=== PATIENT | male | born 1950 | race Caucasian/White ===

== ENCOUNTER 2018-08-05 19:35 | Emergency (ER) | payer MEDICARE, BC, OTHER ==
--- NOTE | 2018-08-05 21:30 | ED Physician Documentation ---
PD HPI ABD PAIN - Stated complaint Stated Complaint: CHILLS/ABD PX - Chief complaint Chief Complaint: Abd Pain - History obtained from History obtained from: Patient - History of Present Illness Timing - onset: Today Timing - duration: Days (1) Timing - details: Gradual onset, Still present Quality: Cramping, Aching, Pain Location: Suprapubic, LLQ Radiation: No: Chest, Lower back, Left flank Improved by: No: Eating Worsened by: No: Eating Associated symptoms: Diarrhea (small amounts loose stool without blood nor melena.). No: Fever, Nausea, Vomiting, Constipation Similar symptoms before: Diagnosis (diverticulitis with few prior similar symptoms, not needing hospitalization.) Recently seen: Not recently seen Review of Systems Constitutional: denies: Fever, Chills Nose: denies: Rhinorrhea / runny nose, Congestion Throat: denies: Sore throat Cardiac: denies: Chest pain / pressure, Palpitations Respiratory: denies: Dyspnea, Cough GI: reports: Abdominal Pain. denies: Nausea, Vomiting, Constipation, Diarrhea, Bloody / black stool : denies: Dysuria, Frequency Skin: denies: Rash, Lesions Neurologic: denies: Generalized weakness, Near syncope PD PAST MEDICAL HISTORY - Past Medical History Cardiovascular: High cholesterol Endocrine/Autoimmune: None GI: Diverticulitis Psych: None Musculoskeletal: Osteoarthritis, Fatigue - Past Surgical History Past Surgical History: Yes HEENT: Tonsil/Adenoidectomy - Present Medications Home Medications: Ambulatory Orders Medication Instructions Recorded Confirmed Lisinopril 04/11/16 Metoprolol Succinate 04/11/16 Atorvastatin [Lipitor] 20 mg PO DAILY 08/05/18 08/05/18 Cephalexin [Keflex] 500 mg PO TID #21 capsule 08/05/18 Metronidazole [Flagyl] 500 mg PO BID #14 tablet 08/05/18 Naproxen 500 mg PO BID #20 tablet 08/05/18 - Allergies Allergies/Adverse Reactions: Allergies Allergy/AdvReac Type Severity Reaction Status Date / Time No Known Drug Allergies Allergy Verified 08/05/18 19:42 - Social History Does the pt smoke?: No Smoking Status: Never smoker Does the pt drink ETOH?: Yes - Immunizations Immunizations are current?: Yes PD ED PE NORMAL - Vitals Vital signs reviewed: Yes - General General: Alert and oriented X 3, No acute distress, Well developed/nourished - HEENT HEENT: Pharynx benign - Neck Neck: Supple, no meningeal sign, No adenopathy - Cardiac Cardiac: RRR, No murmur - Respiratory Respiratory: Clear bilaterally - Abdomen Abdomen: Normal bowel sounds, Soft, Non distended, No organomegaly, Other (He is tender in the left lower quadrant minimal guarding and no percussion or rebound tenderness. There is no referred tenderness. There is no general peritoneal signs.) - Back Back: No CVA TTP - Derm Derm: Normal color, Warm and dry - Extremities Extremities: No deformity, No tenderness to palpate, Normal ROM s pain - Neuro Neuro: Alert and oriented X 3, No motor deficit, Normal speech Results - Vitals Vitals: Vital Signs - 24 hr 08/05/18 08/05/18 19:36 22:14 Temperature 37.2 C 37.1 C Heart Rate 50 L 53 L Respiratory 16 16 Rate Blood Pressure 149/60 H 138/71 H O2 Saturation 100 98 Oxygen O2 Source Room air PD MEDICAL DECISION MAKING - ED course Complexity details: considered differential (He is having pain today that feels similar to several episodes of diverticulitis he has had. He has not been hospitalized previously and has not had complicated diverticulitis. Shared decision was to forego any testing and just treated empirically as diverticulitis.), d/w patient Departure - Departure Disposition: 01 Home, Self Care Clinical Impression: LLQ abdominal pain, Acute diverticulitis Condition: Stable Record reviewed to determine appropriate education?: Yes Instructions: ED Diverticulitis Follow-Up: Alessio Mohr MD [Primary Care Provider] - Prescriptions: Cephalexin [Keflex] 500 mg PO TID #21 capsule Metronidazole [Flagyl] 500 mg PO BID #14 tablet Naproxen 500 mg PO BID #20 tablet Comments: This sounds like diverticulitis like you have had before. Drink lots of fluids. Stool softener if you becomes firm or constipated. Naproxen anti-inflammatory twice daily for a week. Cephalexin and metronidazole antibiotics as directed for a week. Add Tylenol or hydrocodone if needed for pains. Recheck if not improved over the next few days. Discharge Date/Time: 08/05/18 22:14
[2018-08-05] MEDS ORDERED: HYDROcod/ACET 5/325 Prepack 4 PO STA (21:47)
[2018-08-05] MEDS ORDERED: cephALEXin 250 MG CAPSULE PO STA (21:47)
[2018-08-05] MEDS ORDERED: NAPROXEN 250 MG TABLET PO STA (21:47)
[2018-08-05] MEDS ORDERED: metroNIDAZOLE 250 MG TABLET PO STA (21:47)
[2018-08-05 22:14] VITALS: BP 138/71
== END 2018-08-05 22:14 | disposition home or self-care (01) ==
LOC: ED 19:35
DX: K57.32 Diverticulitis of large intestine without perforation or abscess without bleeding (principal)
CPT/HCPCS: 99283; 99284; A9270

== ENCOUNTER 2021-01-31 11:50 | Outpatient (CLI) | payer MEDICARE, BC, OTHER ==
--- NOTE | 2021-02-01 09:08 | XRAY Report ---
PROCEDURE: Chest 2 View X-Ray INDICATIONS: COUGH TECHNIQUE: 2 view(s) of the chest. COMPARISON: None. FINDINGS: Surgical changes and devices: None. Lungs and pleura: The right lung has 2 round ill-defined opacities in the midlung. There is also air space opacity in the right lower lobe medially. No pleural effusions or pneumothorax. Lungs are chari r. Mediastinum: Mediastinal contours are normal. Heart size is normal. Bones and chest wall: No suspicious bony abnormalities. Soft tissues appear unremarkable. IMPRESSION: Ill-defined opacities in the right midlung and right lower lobe, likely early pneumonia. Recommend follow-up x-ray in 2 weeks to ensure resolution. Reviewed by: Stanislaw Stark on 02/01/2021 9:07 AM PDT Approved by: Stanislaw Stark on 02/01/2021 9:07 AM PDT Station ID: [id number]
== END 2021-01-31 11:51 ==
LOC: DI.N 11:50
PROVIDERS: ATTEND Physician Assistant Medical
DX: R05 Cough (principal); R91.8 Other nonspecific abnormal finding of lung field

== ENCOUNTER 2022-01-16 18:09 | Emergency (ER) | payer MEDICARE, OTHER ==
[2022-01-16 18:17] VITALS: BP 145/63
--- OUTSIDE RECORDS SUMMARY | 2022-01-16 18:20 | EXTERNAL MEDICAL SUMMARY RPT | Continuity of Care Document ---
:1950 Author Organization [facility] Address [address] [place] [id number] Phone Allergies and Intolerances date description facility type (no date) No Known Drug Allergies [facility] (unkn own) Encounters No information. Functional Status No information. Immunizations No information. Medications No information. Problems No information. Procedures No information. Results/Labs test date author facility value unit interpret ation Result panel 1 (unknown) (no (unknown) (unknown) (no value) (units (unk nown) date) unknown) (unknown) (no (unknown) (unknown) (no value) (units (unk nown) date) unknown) (unknown) (no (unknown) (unknown) [place], [place] (units ( unknown) date) [id number] unknown) (unknown) (no (unknown) (unknown) Draft (units (unkno wn) date) unknown) (unknown) (no (unknown) (unknown) [facility] (units (unknown) date) unknown) (unknown) (no (unknown) (unknown) Nurse Office (units (u nknown) date) Visit unknown) (unknown) (no (unknown) (unknown) (no value) (units (unk nown) date) unknown) (unknown) (no (unknown) (unknown) COVID-19 (units (u nknown) date) unknown) (unknown) (no (unknown) (unknown) [id number] (units (unkno wn) date) unknown) (unknown) (no (unknown) (unknown) 12/20/21 (units (unkno wn) date) unknown) (unknown) (no (unknown) (unknown) Age/Sex: 71 / M (units (unknown) date) Date of unknown) Service: (unknown) (no (unknown) (unknown) Allergies (units (unkn own) date) unknown) (unknown) (no (unknown) (unknown) Attending Dr: (units ( unknown) date) Michael Worthington MD unknown) (unknown) (no (unknown) (unknown) : 1950 (units (unknown) date) Acct:[id number] unknown) (unknown) (no (unknown) (unknown) Dept at (units (unkno wn) date) . unknown) (unknown) (no (unknown) (unknown) Documented By: (units (unknown) date) Michael Worthington MD unknown) 12/20/21 1151 (unknown) (no (unknown) (unknown) Evaluation/Scree (units (unknown) date) roe for possible unknown) COVID-19 completed?: Yes- COVID-19 CPT (unknown) (no (unknown) (unknown) Health (units (unkno wn) date) Management unknown) (unknown) (no (unknown) (unknown) Health (units (unkno wn) date) Management unknown) reviewed with patient: No (unknown) (no (unknown) (unknown) Intake (units (unkno wn) date) unknown) (unknown) (no (unknown) (unknown) Intake Note: (units (u nknown) date) unknown) (unknown) (no (unknown) (unknown) Intake performed (units (unknown) date) by: Raquel Hernandez unknown) (unknown) (no (unknown) (unknown) Intake- Clincial (units (unknown) date) Staff unknown) (unknown) (no (unknown) (unknown) Loc: [facility] (units (unkno wn) date) unknown) (unknown) (no (unknown) (unknown) No Known Drug (units ( unknown) date) Allergies Allergy unknown) (Verified 09/15/21 15:18) (unknown) (no (unknown) (unknown) Note (units (unkno wn) date) unknown) (unknown) (no (unknown) (unknown) Patient: (units (unkno wn) date) Andrei Mcneill unknown) MR#: [id number] (unknown) (no (unknown) (unknown) Pt came in for a (units (unknown) date) pre procedure unknown) covid test. Denied any covid symptoms. Explained (unknown) (no (unknown) (unknown) Reason For Visit (units (unknown) date) unknown) (unknown) (no (unknown) (unknown) Signed By: (units (unk nown) date) unknown) (unknown) (no (unknown) (unknown) Smoking Status: (units (unknown) date) Former smoker unknown) (unknown) (no (unknown) (unknown) This note may (units ( unknown) date) have been all or unknown) partially generated using voice recognition (unknown) (no (unknown) (unknown) Tobacco Status (units (unknown) date) unknown) (unknown) (no (unknown) (unknown) Visit Reasons: (units (unknown) date) georgina unknown) (unknown) (no (unknown) (unknown) covid test to (units ( unknown) date) pt. [facility] unknown) well. (unknown) (no (unknown) (unknown) have occurred. (units (unknown) date) If there are any unknown) questions, please contact the Medical Records (unknown) (no (unknown) (unknown) may occur. (units (unk nown) date) Occasional unknown) wrong-word or 'sound-alike' substitutions may have (unknown) (no (unknown) (unknown) occurred due to (units (unknown) date) the inherent unknown) limitations of voice recognition software. Please (unknown) (no (unknown) (unknown) read the note (units ( unknown) date) carefully and unknown) recognize, using context, where these substitutions (unknown) (no (unknown) (unknown) software. (units (unkn own) date) Although every unknown) effort is made to edit content, tower air traffic control specialist errors Result panel 2 (unknown) (no (unknown) (unknown) (no value) (units (unk nown) date) unknown) (unknown) (no (unknown) (unknown) (no value) (units (unk nown) date) unknown) (unknown) (no (unknown) (unknown) 12/20/21 1213 (units ( unknown) date) unknown) (unknown) (no (unknown) (unknown) CLAIRE Vasquez (units ( unknown) date) [id number] unknown) (unknown) (no (unknown) (unknown) [facility] (units (unknown) date) unknown) (unknown) (no (unknown) (unknown) Nurse Office (units (u nknown) date) Visit unknown) (unknown) (no (unknown) (unknown) Signed (units (unkno wn) date) unknown) (unknown) (no (unknown) (unknown) (no value) (units (unk nown) date) unknown) (unknown) (no (unknown) (unknown) COVID-19 (units (u nknown) date) unknown) (unknown) (no (unknown) (unknown) [id number] (units (unkno wn) date) unknown) (unknown) (no (unknown) (unknown) 12/20/21 (units (unkno wn) date) unknown) (unknown) (no (unknown) (unknown) Age/Sex: 71 / M (units (unknown) date) Date of unknown) Service: (unknown) (no (unknown) (unknown) Allergies (units (unkn own) date) unknown) (unknown) (no (unknown) (unknown) Attending Dr: (units ( unknown) date) Michael Worthington MD unknown) (unknown) (no (unknown) (unknown) : 1950 (units (unknown) date) Acct:[id number] unknown) (unknown) (no (unknown) (unknown) Dept at (units (unkno wn) date) . unknown) (unknown) (no (unknown) (unknown) Documented By: (units (unknown) date) Michael Worthington MD unknown) 12/20/21 1151 (unknown) (no (unknown) (unknown) Evaluation/Scree (units (unknown) date) roe for possible unknown) COVID-19 completed?: Yes- COVID-19 CPT (unknown) (no (unknown) (unknown) Health (units (unkno wn) date) Management unknown) (unknown) (no (unknown) (unknown) Health (units (unkno wn) date) Management unknown) reviewed with patient: No (unknown) (no (unknown) (unknown) Intake (units (unkno wn) date) unknown) (unknown) (no (unknown) (unknown) Intake Note: (units (u nknown) date) unknown) (unknown) (no (unknown) (unknown) Intake performed (units (unknown) date) by: Raquel Hernandez unknown) (unknown) (no (unknown) (unknown) Intake- Clincial (units (unknown) date) Staff unknown) (unknown) (no (unknown) (unknown) Loc: [facility] (units (unkno wn) date) unknown) (unknown) (no (unknown) (unknown) No Known Drug (units ( unknown) date) Allergies Allergy unknown) (Verified 09/15/21 15:18) (unknown) (no (unknown) (unknown) Note (units (unkno wn) date) unknown) (unknown) (no (unknown) (unknown) Patient: (units (unkno wn) date) Andrei Mcneill unknown) MR#: [id number] (unknown) (no (unknown) (unknown) Pt came in for a (units (unknown) date) pre procedure unknown) covid test. Denied any covid symptoms. Explained (unknown) (no (unknown) (unknown) Reason For Visit (units (unknown) date) unknown) (unknown) (no (unknown) (unknown) Signed By: (units (unk nown) date) <Electronically unknown) signed by Michael Worthington MD> (unknown) (no (unknown) (unknown) Smoking Status: (units (unknown) date) Former smoker unknown) (unknown) (no (unknown) (unknown) This note may (units ( unknown) date) have been all or unknown) partially generated using voice recognition (unknown) (no (unknown) (unknown) Tobacco Status (units (unknown) date) unknown) (unknown) (no (unknown) (unknown) Visit Reasons: (units (unknown) date) georgina unknown) (unknown) (no (unknown) (unknown) covid test to (units ( unknown) date) pt. [facility] unknown) well. (unknown) (no (unknown) (unknown) have occurred. (units (unknown) date) If there are any unknown) questions, please contact the Medical Records (unknown) (no (unknown) (unknown) may occur. (units (unk nown) date) Occasional unknown) wrong-word or 'sound-alike' substitutions may have (unknown) (no (unknown) (unknown) occurred due to (units (unknown) date) the inherent unknown) limitations of voice recognition software. Please (unknown) (no (unknown) (unknown) read the note (units ( unknown) date) carefully and unknown) recognize, using context, where these substitutions (unknown) (no (unknown) (unknown) software. (units (unkn own) date) Although every unknown) effort is made to edit content, tower air traffic control specialist errors Result panel 3 (unknown) (no date) (unknown) (unknown) Negative (units (unkn own) unknown) Result panel 4 (unknown) (no date) (unknown) (unknown) (no value) (units 226 37-3 unknown) (unknown) (no date) (unknown) (unknown) (no value) (units 495 60-6 unknown) (unknown) (no date) (unknown) (unknown) (no value) (units 226 36-5 unknown) (unknown) (no date) (unknown) (unknown) (no value) (units 191 39-5 unknown) (unknown) (no date) (unknown) (unknown) (no value) (units 226 34-0 unknown) (unknown) (no date) (unknown) (unknown) (no value) (units 226 33-2 unknown) (unknown) (no date) (unknown) (unknown) (no value) (units 527 97-8 unknown) Result panel 5 (unknown) (no (unknown) (unknown) (no value) (units (unk nown) date) unknown) (unknown) (no (unknown) (unknown) Status: Acute (units ( unknown) date) unknown) (unknown) (no (unknown) (unknown) (no value) (units (unk nown) date) unknown) (unknown) (no (unknown) (unknown) Date of Service: (units (unknown) date) 12/21/21 unknown) (unknown) (no (unknown) (unknown) (no value) (units (unk nown) date) unknown) (unknown) (no (unknown) (unknown) - (units (unkno wn) date) unknown) (unknown) (no (unknown) (unknown) 12/21/21 0835 (units ( unknown) date) unknown) (unknown) (no (unknown) (unknown) Allergies (units (unkn own) date) unknown) (unknown) (no (unknown) (unknown) Heart disease (units ( unknown) date) unknown) (unknown) (no (unknown) (unknown) History + (units (unkn own) date) Physical Report unknown) (unknown) (no (unknown) (unknown) Home Medications (units (unknown) date) unknown) (unknown) (no (unknown) (unknown) [facility] (units (unknown) date) [address] unknown) [place] [address] (unknown) (no (unknown) (unknown) (no value) (units (unk nown) date) unknown) (unknown) (no (unknown) (unknown) #20 tabs (units (unkno wn) date) unknown) (unknown) (no (unknown) (unknown) 12/21/21 (units (unkno wn) date) unknown) (unknown) (no (unknown) (unknown) Medication (units (unk nown) date) Instructions unknown) Recorded Confirmed Type (unknown) (no (unknown) (unknown) (1) Diarrhea: (units ( unknown) date) unknown) (unknown) (no (unknown) (unknown) (Toprol XL) (units (un known) date) unknown) (unknown) (no (unknown) (unknown) (past 8 hours): (units (unknown) date) unknown) (unknown) (no (unknown) (unknown) [id number] (units (unkno wn) date) unknown) (unknown) (no (unknown) (unknown) 08:19 (units (unkno wn) date) unknown) (unknown) (no (unknown) (unknown) 71-year-old man (units (unknown) date) here for a unknown) colonoscopy secondary to chronic diarrhea. (unknown) (no (unknown) (unknown) 71-year-old man (units (unknown) date) with chronic unknown) diarrhea here for diagnostic colonoscopy. (unknown) (no (unknown) (unknown) Abdomen soft (units (u nknown) date) nontender unknown) (unknown) (no (unknown) (unknown) Age/Sex: 71 / M (units (unknown) date) unknown) (unknown) (no (unknown) (unknown) Allergy/AdvReac (units (unknown) date) Type Severity unknown) Reaction Status Date / Time (unknown) (no (unknown) (unknown) Aphthous ulcer (units (unknown) date) of tongue unknown) (unknown) (no (unknown) (unknown) Assessment + (units (u nknown) date) Plan unknown) (unknown) (no (unknown) (unknown) Assessment and (units (unknown) date) plan unknown) (unknown) (no (unknown) (unknown) Blood Pressure (units (unknown) date) 143/77 H unknown) (unknown) (no (unknown) (unknown) Cardiac (units (unkno wn) date) arrhythmia unknown) (unknown) (no (unknown) (unknown) Chest nonlabored (units (unknown) date) respiration unknown) (unknown) (no (unknown) (unknown) Chief complaint: (units (unknown) date) SDC unknown) (unknown) (no (unknown) (unknown) Cognitive and (units ( unknown) date) behavioral unknown) changes (unknown) (no (unknown) (unknown) Critical Care (units ( unknown) date) time: unknown) (unknown) (no (unknown) (unknown) : 1950 (units (unknown) date) Acct:[id number] unknown) (unknown) (no (unknown) (unknown) Date Patient (units (u nknown) date) Seen: 12/21/21 unknown) (unknown) (no (unknown) (unknown) Exam (units (unkno wn) date) unknown) (unknown) (no (unknown) (unknown) Exam Narrative: (units (unknown) date) unknown) (unknown) (no (unknown) (unknown) Family + Social (units (unknown) date) History unknown) (unknown) (no (unknown) (unknown) Family History (units (unknown) date) (Reviewed unknown) 09/15/21 @ 15:23 by Lolita Najera MA) (unknown) (no (unknown) (unknown) Father Stroke (units (unknown) date) unknown) (unknown) (no (unknown) (unknown) General adult (units ( unknown) date) man alert unknown) oriented no acute distress (unknown) (no (unknown) (unknown) Grandmother (units (un known) date) Dementia unknown) (unknown) (no (unknown) (unknown) H/O cardiac (units (un known) date) radiofrequency unknown) ablation (unknown) (no (unknown) (unknown) Hearing loss (units (u nknown) date) unknown) (unknown) (no (unknown) (unknown) History of (units (unk nown) date) Present Illness unknown) (unknown) (no (unknown) (unknown) Home Medications (units (unknown) date) and Allergies unknown) (unknown) (no (unknown) (unknown) Hyperlipidemia (units (unknown) date) unknown) (unknown) (no (unknown) (unknown) I spent a total (units (unknown) date) of [] minutes of unknown) critical care time on this patient's care (unknown) (no (unknown) (unknown) Medical History (units (unknown) date) (Updated 12/21/21 unknown) @ 08:34 by Michael Worthington MD) (unknown) (no (unknown) (unknown) Meds (units (unkno wn) date) unknown) (unknown) (no (unknown) (unknown) Mother (units (unkno wn) date) unknown) Alzheimer's disease (unknown) (no (unknown) (unknown) Narrative (units (unkn own) date) unknown) (unknown) (no (unknown) (unknown) Narrative: (units (unk nown) date) unknown) (unknown) (no (unknown) (unknown) No Known Drug (units ( unknown) date) Allergies Allergy unknown) Verified 09/15/21 15:18 (unknown) (no (unknown) (unknown) Oxygen Delivery (units (unknown) date) Method Room unknown) Air (unknown) (no (unknown) (unknown) Oxygen Delivery (units (unknown) date) Method Room Air unknown) (unknown) (no (unknown) (unknown) Patient History (units (unknown) date) unknown) (unknown) (no (unknown) (unknown) Patient: (units (unkno wn) date) Andrei Mcneill unknown) MR#: [id number] (unknown) (no (unknown) (unknown) Plan (units (unkno wn) date) unknown) (unknown) (no (unknown) (unknown) Provider: (units (unkn own) date) Michael Worthington MD unknown) (unknown) (no (unknown) (unknown) Pulse Oximetry (units (unknown) date) 100 unknown) (unknown) (no (unknown) (unknown) Pulse Rate 56 L (units (unknown) date) unknown) (unknown) (no (unknown) (unknown) Respiratory Rate (units (unknown) date) 16 unknown) (unknown) (no (unknown) (unknown) Shoulder pain (units ( unknown) date) (-2011) unknown) (unknown) (no (unknown) (unknown) Signed (units (unkno wn) date) By:<Electronicall unknown) y signed by Michael Worthington MD> (unknown) (no (unknown) (unknown) Significant (units (un known) date) cardiac unknown) comorbidities will proceed with anesthesia for sedation (unknown) (no (unknown) (unknown) Significant (units (un known) date) cardiac history unknown) the procedures to be performed under anesthesia (unknown) (no (unknown) (unknown) Smoking Status (units (unknown) date) Former smoker unknown) (unknown) (no (unknown) (unknown) Social History: (units (unknown) date) unknown) (unknown) (no (unknown) (unknown) Substance Use (units ( unknown) date) Type does not unknown) use (unknown) (no (unknown) (unknown) Surgical History (units (unknown) date) (Updated 12/21/21 unknown) @ 08:32 by Chloé Delacruz RN) (unknown) (no (unknown) (unknown) Temperature 96.3 (units (unknown) date) F L unknown) (unknown) (no (unknown) (unknown) Time Patient (units (u nknown) date) Seen: 08:32 unknown) (unknown) (no (unknown) (unknown) Time Spent With (units (unknown) date) Patient unknown) (unknown) (no (unknown) (unknown) Tinnitus (units (unkno wn) date) unknown) (unknown) (no (unknown) (unknown) Tobacco + (units (unkn own) date) Substance use: unknown) (unknown) (no (unknown) (unknown) Vital Signs (units (un known) date) unknown) (unknown) (no (unknown) (unknown) alcohol intake (units (unknown) date) frequency unknown) holiday/special occasion (unknown) (no (unknown) (unknown) atorvastatin 20 (units (unknown) date) mg tablet 20 mg unknown) PO DAILY #90 tabs 05/23/21 12/21/21 Rx (unknown) (no (unknown) (unknown) bleeding, missed (units (unknown) date) diagnosis, unknown) anesthetic complication, intestinal perforation were (unknown) (no (unknown) (unknown) bupropion HCl (units ( unknown) date) 150 mg tablet,12 unknown) hr 150 mg PO DAILY #90 tabs 07/25/21 12/21/21 Rx (unknown) (no (unknown) (unknown) discussed. (units (unk nown) date) Questions have unknown) been answered he is in agreement with this plan. (unknown) (no (unknown) (unknown) household (units (unkn own) date) members spouse unknown) (unknown) (no (unknown) (unknown) measures. (units (unkn own) date) Overview of unknown) procedure was discussed with patient. Risks including (unknown) (no (unknown) (unknown) metoprolol (units (unk nown) date) succinate 25 mg unknown) 25 mg PO BID #180 tabs 02/14/19 12/21/21 Rx (unknown) (no (unknown) (unknown) sedation today. (units (unknown) date) No abdominal pain unknown) nausea vomiting. (unknown) (no (unknown) (unknown) sildenafil 50 mg (units (unknown) date) tablet 50 mg PO unknown) DAILY PRN sexual activity 09/23/21 12/21/21 Rx (unknown) (no (unknown) (unknown) sustained-releas (units (unknown) date) e unknown) (unknown) (no (unknown) (unknown) tablet,extended (units (unknown) date) release 24 hr unknown) (unknown) (no (unknown) (unknown) today; this time (units (unknown) date) is exclusive of unknown) procedural time. Result panel 6 (unknown) (no (unknown) (unknown) Superficial (units (un known) date) portions of unknown) colorectal mucosa x2 with patchy, mild (unknown) (no (unknown) (unknown) There is no (units (un known) date) evidence of unknown) microscopic colitis, active inflammation, (unknown) (no (unknown) (unknown) [address] [place] [address] (units (unknown) date) [address], unknown) [place], [place] [id number] (unknown) (no (unknown) (unknown) [facility] (units (unknown) date) MD Cytology unknown) (unknown) (no (unknown) (unknown) MD Saez (units (unkn own) date) Usman GAVIN Phone: unknown) [phone] (unknown) (no (unknown) (unknown) (no value) (units (unk nown) date) unknown) (unknown) (no (unknown) (unknown) [address] (units (unknown) date) unknown) (unknown) (no (unknown) (unknown) [place] (units ( unknown) date) [address] unknown) (unknown) (no (unknown) (unknown) [facility] (units (unknown) date) unknown) (unknown) (no (unknown) (unknown) Pathology (units (unkn own) date) Diagnostic Report unknown) (unknown) (no (unknown) (unknown) Signed (units (unkno wn) date) unknown) (unknown) (no (unknown) (unknown) granulomas, or (units (unknown) date) regions of unknown) dysplasia. (unknown) (no (unknown) (unknown) hyperplastic (units (u nknown) date) mucosal changes. unknown) (unknown) (no (unknown) (unknown) (no value) (units (unk nown) date) unknown) (unknown) (no (unknown) (unknown) (units (unknown) date) unknown) (unknown) (no (unknown) (unknown) Performed at: (units (unknown) date) 01 unknown) (unknown) (no (unknown) (unknown) . 01 (units (unkno wn) date) unknown) (unknown) (no (unknown) (unknown) /NINO 12/21/2021 (units (unknown) date) 2233 Local unknown) (unknown) (no (unknown) (unknown) 0.3 x 0.2 x 0.2 (units (unknown) date) cm to 0.5 x 0.3 x unknown) 0.2 cm submitted entirely in 1 (unknown) (no (unknown) (unknown) [id number] (units (unkno wn) date) unknown) (unknown) (no (unknown) (unknown) CPT . (units (unkno wn) date) unknown) (unknown) (no (unknown) (unknown) Clinical (units (unkno wn) date) history: . unknown) (unknown) (no (unknown) (unknown) Diagnosis: (units (unk nown) date) unknown) (unknown) (no (unknown) (unknown) Electronically (units (unknown) date) signed: . unknown) (unknown) (no (unknown) (unknown) Gross (units (unkno wn) date) description: . unknown) (unknown) (no (unknown) (unknown) K63.5, R19.7 (units (u nknown) date) unknown) (unknown) (no (unknown) (unknown) [facility] Accession (units ( unknown) date) Number: unknown) [id number] (unknown) (no (unknown) (unknown) MRV 12/23/2021 (units (unknown) date) 1155 Local unknown) (unknown) (no (unknown) (unknown) Material (units (unkno wn) date) submitted: . unknown) (unknown) (no (unknown) (unknown) [facility]- [id number] (units (unknown) date) unknown) (unknown) (no (unknown) (unknown) Pathologist (units (un known) date) provided ICD-10: unknown) (unknown) (no (unknown) (unknown) Received in (units (un known) date) formalin are 2 unknown) fragment(s) of dewitt, soft tissue measuring (unknown) (no (unknown) (unknown) SIGMOID POLYP: (units (unknown) date) unknown) (unknown) (no (unknown) (unknown) Jessica Rosales (units (unkno wn) date) MD Laura, unknown) Pathologist (unknown) (no (unknown) (unknown) Sigmoid Polyp: (units (unknown) date) unknown) (unknown) (no (unknown) (unknown) Specimen (units (unkno wn) date) Comment: A unknown) courtesy copy of this report has been sent to [phone] (unknown) (no (unknown) (unknown) cassette(s) (units (un known) date) unknown) (unknown) (no (unknown) (unknown) colon - SIGMOID (units (unknown) date) POLYP unknown) (unknown) (no (unknown) (unknown) diarrhea, (units (unkn own) date) unspecified unknown) (unknown) (no (unknown) (unknown) Collection Date: (units (unknown) date) 12/21/21 unknown) (unknown) (no (unknown) (unknown) DD/ (units (unknown) date) 0000 unknown) (unknown) (no (unknown) (unknown) Date of : (units (unknown) date) 1950 unknown) Admit Date: 12/21/21 (unknown) (no (unknown) (unknown) Dictated By: (units (u nknown) date) Jessica Sanchez MD unknown) (unknown) (no (unknown) (unknown) (units (unknown) date) Dictating Dr: unknown) Jessica Sanchez MD (unknown) (no (unknown) (unknown) Ordering (units (unkno wn) date) Physician: unknown) Michael Worthington MD (unknown) (no (unknown) (unknown) Patient name: (units ( unknown) date) Andrei Mcneill unknown) (unknown) (no (unknown) (unknown) Signed By: (units (unk nown) date) 12/23/21 1507 unknown) (unknown) (no (unknown) (unknown) TD/TT: 12/23/21 (units (unknown) date) 1507 unknown) Result panel 7 (unknown) (no (unknown) (unknown) (no value) (units (unk nown) date) unknown) (unknown) (no (unknown) (unknown) Date of Service: (units (unknown) date) 12/21/21 unknown) (unknown) (no (unknown) (unknown) 12/21/21 0911 (units ( unknown) date) unknown) (unknown) (no (unknown) (unknown) Colonoscopy Note (units (unknown) date) unknown) (unknown) (no (unknown) (unknown) [facility] (units (unknown) date) [address] unknown) [place] [id number] (unknown) (no (unknown) (unknown) (no value) (units (unk nown) date) unknown) (unknown) (no (unknown) (unknown) [id number] (units (unkno wn) date) unknown) (unknown) (no (unknown) (unknown) 1. Sigmoid-5 mm (units (unknown) date) polyp removed unknown) with biopsy forceps (unknown) (no (unknown) (unknown) 2. Velazquez extensive (units (unknown) date) diverticulosis unknown) (unknown) (no (unknown) (unknown) 3. The (units (unkno wn) date) procedure was unknown) discussed in detail with the patient. Potential risks (unknown) (no (unknown) (unknown) Age/Sex: 71 / M (units (unknown) date) unknown) (unknown) (no (unknown) (unknown) Chronic diarrhea (units (unknown) date) unknown) (unknown) (no (unknown) (unknown) Colonoscopy (units (un known) date) unknown) (unknown) (no (unknown) (unknown) Complications: (units (unknown) date) none unknown) (unknown) (no (unknown) (unknown) : 1950 (units (unknown) date) Acct:[id number] unknown) (unknown) (no (unknown) (unknown) Date of (units (unkno wn) date) procedure: unknown) 12/21/21 (unknown) (no (unknown) (unknown) Disposition: (units (u nknown) date) same day surgery unknown) (unknown) (no (unknown) (unknown) Diverticulosis, (units (unknown) date) colonic polyp unknown) (unknown) (no (unknown) (unknown) FINDINGS (units (unkno wn) date) unknown) (unknown) (no (unknown) (unknown) Impression: (units (un known) date) unknown) (unknown) (no (unknown) (unknown) Indications: (units (u nknown) date) unknown) (unknown) (no (unknown) (unknown) Operative (units (unkn own) date) Date/Time/Diagnos unknown) es (unknown) (no (unknown) (unknown) Patient was (units (un known) date) brought to the unknown) procedure room and placed standard monitoring (unknown) (no (unknown) (unknown) Patient: (units (unkno wn) date) Andrei Mcneill unknown) MR#: [id number] (unknown) (no (unknown) (unknown) Post-op (units (unkno wn) date) diagnosis: other unknown) (Diverticulosis) (unknown) (no (unknown) (unknown) Post-procedure (units (unknown) date) unknown) (unknown) (no (unknown) (unknown) Pre-op (units (unkno wn) date) diagnosis: unknown) Chronic diarrhea (unknown) (no (unknown) (unknown) Procedure + (units (un known) date) Clinicians unknown) (unknown) (no (unknown) (unknown) Procedure Notes (units (unknown) date) unknown) (unknown) (no (unknown) (unknown) Procedure in (units (u nknown) date) detail: unknown) (unknown) (no (unknown) (unknown) Provider: (units (unkn own) date) Michael Worthington MD unknown) (unknown) (no (unknown) (unknown) Recommendations: (units (unknown) date) Colonoscopy in 5 unknown) years and High fiber diet (unknown) (no (unknown) (unknown) Same procedure (units (unknown) date) as scheduled: Yes unknown) (unknown) (no (unknown) (unknown) Signed (units (unkno wn) date) By:<Electronicall unknown) y signed by Michael Worthington MD> (unknown) (no (unknown) (unknown) Specimen(s): (units (u nknown) date) other (Sigmoid unknown) polyp) (unknown) (no (unknown) (unknown) Study performed: (units (unknown) date) unknown) (unknown) (no (unknown) (unknown) Surgeon: Michael (units (unknown) date) Georgina unknown) (unknown) (no (unknown) (unknown) The history and (units (unknown) date) physical was unknown) performed/updated and the patient is ASA class is (unknown) (no (unknown) (unknown) The patient (units (un known) date) tolerated the unknown) procedure well. They will be discharged once criteria (unknown) (no (unknown) (unknown) Time of (units (unkno wn) date) procedure: 09:10 unknown) (unknown) (no (unknown) (unknown) administered by (units (unknown) date) Anesthesia. unknown) Examination began with a thorough inspection of the (unknown) (no (unknown) (unknown) are met. The (units ( unknown) date) prep was of unknown) good/excellent quality. The withdrawl time was 8 (unknown) (no (unknown) (unknown) canal and was (units ( unknown) date) advanced to the unknown) cecum, which was identified by the ileocecal (unknown) (no (unknown) (unknown) complications (units (u nknown) date) including unknown) infection, bleeding, missed diagnosis, perforation, need (unknown) (no (unknown) (unknown) entire (units (unkno wn) date) procedure. Prior unknown) to starting time-out was performed. The patient was (unknown) (no (unknown) (unknown) equipment. The (units (unknown) date) patient's vital unknown) signs were monitored continuously throughout the (unknown) (no (unknown) (unknown) for surgery, and (units (unknown) date) were unknown) explained. Their questions were answered and (unknown) (no (unknown) (unknown) informed consent (units (unknown) date) was obtained. unknown) (unknown) (no (unknown) (unknown) it of any (units (unkn own) date) residual stool. unknown) (unknown) (no (unknown) (unknown) minutes. (units (unkno wn) date) unknown) (unknown) (no (unknown) (unknown) or cutaneous (units (u nknown) date) malignancy. The unknown) colonoscopy scope was then placed into the anal (unknown) (no (unknown) (unknown) perianal area (units ( unknown) date) there was no unknown) evidence of fissures, fistulae, external hemorrhoids (unknown) (no (unknown) (unknown) placed in the (units ( unknown) date) left lateral unknown) recumbent position. Procedural sedation was (unknown) (no (unknown) (unknown) then slowly (units (un known) date) withdrawn unknown) examining colon thoroughly in all directions, irrigating (unknown) (no (unknown) (unknown) valve, the (units (unk nown) date) appendiceal unknown) orifice and the confluence of the taenia. The scope was Social History No information. Vital Signs No information.
--- NOTE | 2022-01-16 18:22 | ED Physician Documentation ---
PD HPI SKIN - Stated complaint Stated Complaint: MRSA - Chief complaint Chief Complaint: General - History obtained from History obtained from: Patient - History of Present Illness Timing - onset: Today Timing - details: Other (the patient has not had any symptoms. His diagnosed with likpatriciay MRSA skin infections and patient sent from [facility] to get MRSA nasal swab test to see if he is carrier.) Location: Other (none) Quality / character: No: Painful, Burning, Swelling Recently seen: Not recently seen (his was seen at walk in and Dx with MRSA. Patient sent down for MRSA nasal test. It is not clear why the [facility] could not do it.) Review of Systems Nose: denies: Rhinorrhea / runny nose, Congestion Throat: denies: Sore throat Respiratory: denies: Cough Skin: denies: Rash, Lesions PD PAST MEDICAL HISTORY - Past Medical History Cardiovascular: High cholesterol Endocrine/Autoimmune: None GI: Diverticulitis Psych: None Musculoskeletal: Osteoarthritis, Fatigue - Past Surgical History Past Surgical History: Yes HEENT: Tonsil/Adenoidectomy - Present Medications Home Medications: Ambulatory Orders Medication Instructions Recorded Confirmed Lisinopril 04/11/16 Metoprolol Succinate 04/11/16 Atorvastatin [Lipitor] 20 mg PO DAILY 08/05/18 08/05/18 Naproxen 500 mg PO BID #20 tablet 08/05/18 cephALEXin [Keflex] 500 mg PO TID #21 capsule 08/05/18 metroNIDAZOLE [Flagyl] 500 mg PO BID #14 tablet 08/05/18 - Allergies Allergies/Adverse Reactions: Allergies Allergy/AdvReac Type Severity Reaction Status Date / Time No Known Drug Allergies Allergy Verified 01/16/22 18:12 - Social History Does the pt smoke?: No Smoking Status: Never smoker Does the pt drink ETOH?: Yes Does the pt have substance abuse?: No - Immunizations Immunizations are current?: Yes PD ED PE NORMAL - Vitals Vital signs reviewed: Yes - General General: Alert and oriented X 3, No acute distress, Well developed/nourished - HEENT HEENT: Moist mucous membranes, Pharynx benign, Other (nasal area without discharge.) - Derm Derm: Normal color, Warm and dry Results - Vitals Vitals: Vital Signs - 24 hr 01/16/22 18:12 Temperature 36.5 C Heart Rate 55 L Respiratory 16 Rate Blood Pressure 145/63 H O2 Saturation 98 Oxygen O2 Source Room air - Labs Labs: Laboratory Tests 01/16/22 18:18 Nasal Screen MRSA (PCR) NEGATIVE PD MEDICAL DECISION MAKING - ED course Complexity details: considered differential (just here for requested MRSA screening by [facility]. ), d/w patient Departure - Departure Disposition: 01 Home, Self Care Clinical Impression: MRSA exposure Condition: Stable Record reviewed to determine appropriate education?: Yes Comments: This particular test actually should result likely tomorrow being more specific for MRSA. You can check the results on the patient portal or we will call you if positive. Your primary care can look up the results as well. Discharge Date/Time: 01/16/22 18:32
== END 2022-01-16 18:32 | disposition home or self-care (01) ==
LOC: ED 18:09
DX: Z22.322 Carrier or suspected carrier of Methicillin resistant Staphylococcus aureus (principal)
CPT/HCPCS: 87640; 99281; 99283

== ENCOUNTER 2022-04-08 19:08 | Emergency (ER) | payer MEDICARE, BC, OTHER ==
[2022-04-08 19:31] VITALS: BP 146/76
[2022-04-08] MEDS ORDERED: KETOROLAC 60 MG/2 ML VIAL IM STA (20:17)
--- NOTE | 2022-04-08 20:27 | ED Physician Documentation ---
History of Present Illness - Stated complaint Stated Complaint: NECK PX - Chief complaint Chief Complaint: General - History obtained from History obtained from: Patient, Family - History of Present Illness Timing: How many days ago (3) Pain level max: 6 Pain level now: 4 - Additonal information Additional information: Patient is a 71-year-old male who presents to the emergency department the right sided neck pain. This been ongoing for the past 3 days. Described as sharp, intermittent. Denies any trauma. Recently tested positive for COVID and started Paxlovid 4 days ago. After starting the Paxlovid he developed the neck pain. He has not taken anything for the pain. Nothing seems to make it better or worse. He states the pain comes and goes, feels sharp. No numbness or tingling. Review of Systems Constitutional: denies: Fever, Chills Respiratory: reports: Cough GI: denies: Nausea, Vomiting, Diarrhea Skin: denies: Rash Musculoskeletal: denies: Back pain Neurologic: denies: Headache PD PAST MEDICAL HISTORY - Past Medical History Past Medical History: Yes Cardiovascular: High cholesterol Endocrine/Autoimmune: None GI: Diverticulitis Psych: None Musculoskeletal: Osteoarthritis, Fatigue - Past Surgical History Past Surgical History: Yes HEENT: Tonsil/Adenoidectomy - Present Medications Home Medications: Ambulatory Orders Medication Instructions Recorded Confirmed Lisinopril 04/11/16 Metoprolol Succinate 04/11/16 Atorvastatin [Lipitor] 20 mg PO DAILY 08/05/18 08/05/18 Cetirizine HCl/Pseudoephedrine 1 each PO BID PRN #30 tab 04/08/22 [Zyrtec-D Tablet] Ketorolac [Toradol] 10 mg PO Q6H PRN #20 tablet 04/08/22 - Allergies Allergies/Adverse Reactions: Allergies Allergy/AdvReac Type Severity Reaction Status Date / Time No Known Drug Allergies Allergy Verified 04/08/22 19:31 - Social History Does the pt smoke?: No Smoking Status: Never smoker Does the pt drink ETOH?: Yes Does the pt have substance abuse?: No - Immunizations Immunizations are current?: Yes PD ED PE NORMAL - Vitals Vital signs reviewed: Yes - General General: Alert and oriented X 3, No acute distress - HEENT HEENT: Moist mucous membranes - Neck Neck: Supple, no meningeal sign, No bony TTP, No JVD, No bruit, Other (Mild tenderness to palpation over the right paracervical muscle down into the trapezius. Reproduces his pain.) - Cardiac Cardiac: RRR, Strong equal pulses - Respiratory Respiratory: No respiratory distress, Clear bilaterally - Abdomen Abdomen: Soft, Non tender, Non distended - Derm Derm: Warm and dry - Extremities Extremities: No edema, No calf tenderness / cord - Neuro Neuro: Alert and oriented X 3 - Psych Psych: Normal mood, Normal affect Results - Vitals Vitals: Vital Signs - 24 hr 04/08/22 19:27 Temperature 36.0 C L Heart Rate 67 Respiratory 18 Rate Blood Pressure 146/76 H O2 Saturation 100 Oxygen O2 Source Room air - Rads (name of study) cxr Radiology: Final report received, EMP read contemporaneously, See rad report PD MEDICAL DECISION MAKING - ED course Complexity details: reviewed results, re-evaluated patient, considered differential, d/w patient, d/w family ED course: Patient is a 71-year-old male who presents to the emergency department with neck pain after being diagnosed with COVID and starting Paxlovid. Unclear if there is a possible association with the Paxlovid? We will have him stop this. Pain resolved with Toradol. No neurological deficits. GCS 15. Cranial nerves int act. Using his arms freely. We will place on pain medication for home and have him follow-up with his doctor. Patient also requests a decongestant. I will prescribe this for him. Patient counseled regarding signs and symptoms for which I believe and urgent re-evaluation would be necessary. Patient with good understanding of and agreement to plan and is comfortable going home at this time This document was made in part using voice recognition software. While efforts are made to proofread this document, sound alike and grammatical errors may occur. Departure - Departure Disposition: 01 Home, Self Care Clinical Impression: Neck pain, COVID Condition: Good Instructions: ED Neck Back Pain General Follow-Up: KERON LEBLANC DO [Primary Care Provider] - Within 1 week Prescriptions: Ketorolac [Toradol] 10 mg PO Q6H PRN #20 tablet PRN Reason: back pain Cetirizine HCl/Pseudoephedrine [Zyrtec-D Tablet] 1 each PO BID PRN #30 tab PRN Reason: nasal congestion Comments: Please follow-up with your doctor as needed for further care. Return if you worsen. I would stop the Paxlovid as this may be causing some of your symptoms. Your prescriptions were sent to [facility] in [place]. Discharge Date/Time: 04/08/22 21:42
--- OUTSIDE RECORDS SUMMARY | 2022-04-08 20:39 | EXTERNAL MEDICAL SUMMARY RPT | Continuity of Care Document ---
:1950 Author Organization [facility] Address [address] [place] [address] Phone Care Team Providers Name Role Phone Unavailable Unavailable Unavailable Krishna Mejia, Gio Unavailable Unavailable Allergies No information. Encounters No information. Functional Status No information. Immunizations No information. Medications date description facility [id number]+0000 mupirocin All 60523678692474+0000 chlorhexidine gluconate All 15454739663529+0000 colchicine All 19472316869297+0000 metoprolol succinate All 01208330841393+0000 bupropion hcl All 78978414969553+0000 mupirocin All 91990761308046+0000 colchicine All 13654533285011+0000 mupirocin All 83649024410607+0000 metoprolol succinate All 51483169817621+0000 atorvastatin All 77119344054445+0000 atorvastatin All 50510348780035+0000 colchicine All 64639663343958+0000 bupropion hcl All 17870680188869+0000 atorvastatin All 13055633621210+0000 atorvastatin All 95065479744087+0000 colchicine All 67604111771636+0000 metoprolol succinate All 34516274124459+0000 chlorhexidine gluconate All 45659719864370+0000 bupropion hcl All 59612463295191+0000 metoprolol succinate All 45422327684627+0000 mupirocin All 70342441590606+0000 chlorhexidine gluconate All 17471404183822+0000 chlorhexidine gluconate All 36057438938625+0000 bupropion hcl All Problems No information. Procedures date description facility [id number]+0000 Visit Code Hold All Results/Labs No information. Social History No information. Vital Signs date measurement value units 51365415075200+0000 BMI BMI 28.08 kg/m2 17492270844894+0000 BP_diastolic BP_diastolic 73 mmHg 61290857783942+0000 BP_systolic BP_systolic 153 mmHg 23877071321471+0000 heart_rate heart_rate 53 /min +0000 height_metric height_metric 177.8 cm +0000 height_standard height_standard 70 in +0000 respiration_rate respiration_rate 18 /min +0000 temperature_metric temperature_metric 36.78 C +0000 temperature_standard temperature_standard 9 8.2 F +0000 weight_metric weight_metric 88.45 kg +0000 weight_standard weight_standard 195 lb
--- NOTE | 2022-04-08 21:12 | XRAY Report ---
PROCEDURE: Chest 2 View X-Ray INDICATIONS: cough, neck pain, covid TECHNIQUE: 2 views of the chest were acquired. COMPARISON: FINDINGS: Surgical changes and devices: None. Lungs and pleura: No pleural effusions or pneumothorax. Lungs are clear. Mediastinum: Mediastinal contours are normal. Heart size is normal. Bones and chest wall: No suspicious bony abnormalities. Soft tissues appear unremarkable. IMPRESSION: Normal for age, source of current symptoms is not seen. Reviewed by: Angel Griffin MD on 04/08/2022 9:11 PM PST Approved by: Angel Griffin MD on 04/08/2022 9:11 PM PST Station ID: [id number]
== END 2022-04-08 21:42 | disposition home or self-care (01) ==
LOC: ED 19:08
DX: U07.1 COVID-19 (principal); M54.2 Cervicalgia
CPT/HCPCS: 96372; 99283; 99284

== ENCOUNTER 2022-04-09 04:41 | Emergency (ER) | payer MEDICARE, BC, OTHER ==
[2022-04-09 05:04] VITALS: BP 174/80
[2022-04-09] MEDS ORDERED: oxyCODONE 5 MG TABLET PO STA (05:38)
--- OUTSIDE RECORDS SUMMARY | 2022-04-09 05:42 | EXTERNAL MEDICAL SUMMARY RPT | Continuity of Care Document ---
:1950 Author Organization [facility] Address [address] [place] [address] Phone Care Team Providers Name Role Phone Unavailable Unavailable Unavailable Krishna Mejia, Gio Unavailable Unavailable Allergies No information. Encounters No information. Functional Status No information. Immunizations No information. Medications date description facility [id number]+0000 mupirocin All 58000543767810+0000 chlorhexidine gluconate All 10390015034986+0000 colchicine All 85635467336445+0000 metoprolol succinate All 22560521607764+0000 bupropion hcl All 33008034822535+0000 mupirocin All 63141183871819+0000 colchicine All 14580138613580+0000 mupirocin All 17831410725494+0000 metoprolol succinate All 39319430465243+0000 atorvastatin All 87709863442563+0000 atorvastatin All 42639478748356+0000 colchicine All 82444634100402+0000 bupropion hcl All 85945114860943+0000 atorvastatin All 83934524889883+0000 atorvastatin All 35972775701721+0000 colchicine All 72588441724143+0000 metoprolol succinate All 58288621470794+0000 chlorhexidine gluconate All 16668260664001+0000 bupropion hcl All 01135064210284+0000 metoprolol succinate All 73149610794193+0000 mupirocin All 20999697955646+0000 chlorhexidine gluconate All 38965591249583+0000 chlorhexidine gluconate All 33742325657052+0000 bupropion hcl All Problems No information. Procedures date description facility [id number]+0000 Visit Code Hold All Results/Labs No information. Social History No information. Vital Signs date measurement value units 25678352556598+0000 BMI BMI 28.08 kg/m2 31157343270899+0000 BP_diastolic BP_diastolic 73 mmHg 78267171812500+0000 BP_systolic BP_systolic 153 mmHg 34650581950555+0000 heart_rate heart_rate 53 /min +0000 height_metric height_metric 177.8 cm +0000 height_standard height_standard 70 in +0000 respiration_rate respiration_rate 18 /min +0000 temperature_metric temperature_metric 36.78 C +0000 temperature_standard temperature_standard 9 8.2 F +0000 weight_metric weight_metric 88.45 kg +0000 weight_standard weight_standard 195 lb
--- NOTE | 2022-04-09 05:43 | ED Physician Documentation ---
History of Present Illness - Stated complaint Stated Complaint: worsening neck pain - Chief complaint Chief Complaint: General - History obtained from History obtained from: Patient - Additonal information Additional information: Patient is a 71-year-old male with recent diagnosis of COVID presenting for evaluation of right-sided neck pain that is been present for 3 days. He initially attributed it to starting Paxlovid. He was seen last night in the emergency department for this pain and had a chest x-ray and was started on Toradol. He reports that the Toradol dose he received lasted for a few hours but he was still unable to get any sleep. He tried Voltaren gel over the area.Nothing makes the pain better or worse. He denies any injury or trauma. Review of Systems Constitutional: denies: Fever Nose: reports: Congestion Cardiac: denies: Chest pain / pressure Respiratory: reports: Cough. denies: Dyspnea GI: denies: Abdominal Pain Musculoskeletal: reports: Neck pain Neurologic: denies: Headache PD PAST MEDICAL HISTORY - Past Medical History Past Medical History: Yes Cardiovascular: High cholesterol Endocrine/Autoimmune: None GI: Diverticulitis Psych: None Musculoskeletal: Osteoarthritis, Fatigue - Past Surgical History Past Surgical History: Yes HEENT: Tonsil/Adenoidectomy - Present Medications Home Medications: Ambulatory Orders Medication Instructions Recorded Confirmed Lisinopril 20 mg PO DAILY 04/11/16 04/09/22 Metoprolol Succinate 25 mg PO DAILY 04/11/16 04/09/22 Atorvastatin [Lipitor] 20 mg PO DAILY 08/05/18 04/09/22 Cetirizine HCl/Pseudoephedrine 1 each PO BID PRN #30 tab 04/08/22 04/09/22 [Zyrtec-D Tablet] Ketorolac [Toradol] 10 mg PO Q6H PRN #20 tablet 04/08/22 04/09/22 Oxycodone HCl/Acetaminophen 1 each PO Q6H PRN #14 tablet 04/09/22 [Percocet 5-325 mg Tablet] Valacyclovir HCl [Valtrex] 1,000 mg PO TID #21 tablet 04/09/22 predniSONE [Deltasone] 20 mg PO [id number] #21 tab 04/09/22 - Allergies Allergies/Adverse Reactions: Allergies Allergy/AdvReac Type Severity Reaction Status Date / Time No Known Drug Allergies Allergy Verified 04/09/22 05:04 - Social History Does the pt smoke?: No Smoking Status: Never smoker Does the pt drink ETOH?: Yes Does the pt have substance abuse?: No - Immunizations Immunizations are current?: Yes - POLST Patient has POLST: No PD ED PE NORMAL - General General: Alert and oriented X 3, No acute distress, Well developed/nourished - HEENT HEENT: Atraumatic, Moist mucous membranes - Neck Neck: Supple, no meningeal sign, No bony TTP, Other (Erythematous papules to neck; Does not cross the midline, no vesicles) - Cardiac Cardiac: RRR, Strong equal pulses - Respiratory Respiratory: No respiratory distress, Clear bilaterally - Derm Derm: Other (Erythematous papules to right neck). No: No rash - Extremities Extremities: Other (Radial pulses intact) - Neuro Neuro: Alert and oriented X 3, No motor deficit, No sensory deficit, Normal speech PD ED PE EXPANDED - Derm SKin visual: 1 - rash Results - Vitals Vitals: Vital Signs - 24 hr 04/09/22 04:58 Temperature 36.8 C Heart Rate 63 Respiratory 18 Rate Blood Pressure 174/80 H O2 Saturation 100 Oxygen O2 Source Room air PD MEDICAL DECISION MAKING - ED course ED course: Patient presenting for evaluation of neck pain. Has now developed a rash to the area. He did use Voltaren gel earlier tonight but denies any itchiness or even noticing the rash until I pointed out to him.The rash is concerning for the appearance of early shingles And patient does describe his pain as somewhat of a deep gnawing pain into the muscle.Therefore I do feel it is reasonable to treat for shingles and have reviewed treatment recommendations.Patient's neuro exam is normal.Patient encouraged to have close follow-up with his primary care doctor. Advised on concerning symptoms to return for. Departure - Departure Disposition: 01 Home, Self Care Clinical Impression: Shingles Qualifiers: Herpes zoster complications: without complications Qualified Code(s): B02.9 - Zoster without complications Condition: Stable Instructions: ED Shingles Prescriptions: predniSONE [Deltasone] 20 mg PO [id number] #21 tab Oxycodone HCl/Acetaminophen [Percocet 5-325 mg Tablet] 1 each PO Q6H PRN #14 tablet PRN Reason: pain Valacyclovir HCl [Valtrex] 1,000 mg PO TID #21 tablet Comments: I am concerned that your neck pain is from shingles as you have now developed a rash in the area.I have started you on medications that can help with reducing the severity of shingles Including steroids, antiviral medicines and also pain medicine. I sent these prescriptions to [facility] in [place]. I would recommend close follow-up with your primary care doctor. If you have any new or worsening symptoms please consider return to the ER. I am prescribing a short course of narcotic pain medication for you. These are potentially dangerous and addictive medications that should be used carefully. These medications may constipate you. Take an ewde-xgm-mnvygzm stool softener (docusate) twice daily with plenty of water while taking these medications. If you go 24 hours without a bowel movement, take wabr-[id number] miralax, per package instructions. Do not drink or drive while taking these medications. If you received narcotic or sedating medications while in the emergency department, do not drive for 24 hours. Store this medication in a safe, secure place and out of reach of children. It is a violation of federal law to give or sell this medication to another person or to use in a manner other than prescribed. The ED will not refill narcotic prescriptions, including prescriptions lost or stolen. To dispose of unwanted medications: 1. [facility] at [address] in [place] has a medication drop box. They accept prescription medications (in pill form) Sunday through Sunday 9:00 a.m. to 5:00 p.m. 2. [facility], [place] [employer] accepts prescription medications (in pill form only) for disposal year round. Call for more information. 3. Contact the [facility] for the next [facility] sponsored prescription drug collection event. , [phone], or [phone]; Note that many narcotic pain relievers also contain Tylenol/acetaminophen. Please ensure that your total dose of acetaminophen from all sources does not exceed 3 g (3000 mg) per day.
== END 2022-04-09 05:58 | disposition home or self-care (01) ==
LOC: ED 04:41
DX: B02.9 Zoster without complications (principal); Z86.16 Personal history of COVID-19; R05.9 Cough, unspecified; R09.81 Nasal congestion
CPT/HCPCS: 99282; 99283; A9270

== ENCOUNTER 2022-07-25 16:38 | Outpatient (CLI) | payer MEDICARE, BC, OTHER | END 2022-07-25 23:59 | disposition critical access hospital (66) | LOC: EMS 16:38 | DX: R07.9 Chest pain, unspecified (principal) | CPT/HCPCS: A0425; A0429 ==

== ENCOUNTER 2022-07-25 16:51 | Emergency (ER) | payer MEDICARE, BC, OTHER ==
[2022-07-25 17:18] VITALS: BP 128/71
--- NOTE | 2022-07-25 17:31 | ED Physician Documentation ---
PD HPI CHEST PAIN - Stated complaint Stated Complaint: CP - Chief complaint Chief Complaint: Cardiac - History obtained from History obtained from: Patient - History of Present Illness Worsened by: Movement, Palpation. No: Exertion, Inspiration, Eating, Position Associated symptoms: Other. No: Shortness of air, Diaphoresis, Nausea, Vomiting, Feeling faint / dizzy, General Weakness, Palpitations, Cough Recently seen: Clinic (Seen at the walk-in clinic earlier today for same) - Additional information Additional information: Patient is a 71-year-old male who presents to the emergency department complaint of left-sided chest pain. He states that it is a "discomfort". It is near the left mid axillary line at approximately ribs 8 through 10. He states it is worse with movement and palpation. Nothing makes it better. No change with deep breathing, exertion or coughing. Patient states that he has chronic atrial fibrillation. He states that this discomfort has been constant for about 2 days. Rates it as a 1-2 out of 10. Has not taken anything for it. Review of Systems Constitutional: denies: Fever, Chills GI: denies: Vomiting, Diarrhea Skin: denies: Rash Musculoskeletal: denies: Neck pain, Back pain Neurologic: denies: Headache PD PAST MEDICAL HISTORY - Past Medical History Cardiovascular: High cholesterol Endocrine/Autoimmune: None GI: Diverticulitis Psych: None Musculoskeletal: Osteoarthritis, Fatigue - Past Surgical History Past Surgical History: Yes HEENT: Tonsil/Adenoidectomy - Present Medications Home Medications: Ambulatory Orders Medication Instructions Recorded Confirmed Metoprolol Succinate 25 mg PO DAILY 04/11/16 07/25/22 Atorvastatin [Lipitor] 20 mg PO DAILY 08/05/18 07/25/22 Cetirizine HCl/Pseudoephedrine 1 each PO BID PRN #30 tab 04/08/22 07/25/22 [Zyrtec-D Tablet] - Allergies Allergies/Adverse Reactions: Allergies Allergy/AdvReac Type Severity Reaction Status Date / Time No Known Drug Allergies Allergy Verified 07/25/22 17:02 - Social History Does the pt smoke?: No Smoking Status: Never smoker Does the pt drink ETOH?: Yes Does the pt have substance abuse?: No - Immunizations Immunizations are current?: Yes - POLST Patient has POLST: No PD ED PE NORMAL - Vitals Vital signs reviewed: Yes - General General: Alert and oriented X 3, No acute distress - HEENT HEENT: PERRL, Moist mucous membranes - Neck Neck: Supple, no meningeal sign - Cardiac Cardiac: RRR, Strong equal pulses - Respiratory Respiratory: No respiratory distress, Clear bilaterally, Other (Mild tenderness to palpation in the left mid axillary line. Approximately ribs 8 through 10. No crepitus. No ecchymosis. No skin changes. No rash.) - Abdomen Abdomen: Soft, Non tender, Non distended - Back Back: No CVA TTP, No spinal TTP - Derm Derm: Warm and dry, No rash - Extremities Extremities: No edema, No calf tenderness / cord - Neuro Neuro: Alert and oriented X 3 - Psych Psych: Normal mood, Normal affect Results - Vitals Vitals: Vital Signs - 24 hr 07/25/22 07/25/22 16:57 17:17 Temperature 37.0 C Heart Rate 77 79 Respiratory 18 16 Rate Blood Pressure 145/63 H 128/71 O2 Saturation 100 98 Oxygen O2 Source Room air - EKG (time done) 1659 EKG releavant findings:: EKG personally interpreted by author of this note. Relevant findings are: Rate: Rate (enter#) (82) Rhythm: NSR, Other (PVC) Intervals: LBBB Compare to prior EKG: Old EKG unavailable - Labs Labs: Laboratory Tests 07/25/22 07/25/22 07/25/22 17:18 17:18 17:18 WBC 5.6 RBC 4.79 Hgb 13.4 L Hct 42.0 MCV 87.7 MCH 28.0 MCHC 31.9 L RDW 15.7 H Plt Count 208 MPV 11.1 Neut # (Auto) 3.5 Lymph # (Auto) 1.2 L [place] # (Auto) 0.5 Eos # (Auto) 0.3 Baso # (Auto) 0.1 Absolute Nucleated RBC 0.00 Nucleated RBC % 0.0 Sodium 141 Potassium 3.7 Chloride 107 Carbon Dioxide 26 Anion Gap 8.0 BUN 29 H Creatinine 0.9 Estimated GFR (MDRD) 83 L Glucose 137 H Calcium 8.9 Total Bilirubin 0.6 AST 22 ALT 24 Alkaline Phosphatase 67 Troponin I High Sens 5.4 Total Protein 7.2 Albumin 3.6 Globulin 3.6 Albumin/Globulin Ratio 1.0 Lipase 26 - Rads (name of study) Chest x-ray Radiology: Final report received, See rad report PD Medical Decision Making - ED course Complexity details: reviewed results, re-evaluated patient, considered differential (No ST elevation AR, no aortic dissection, no PE, no tension pneumothorax, no aortic aneurysm), d/w patient ED course: Patient with 2 days of very atypical left-sided chest pain. No acute findings on chest x-ray. He did have episodes of trigeminy, he states that he has had this for years. His CBC does not show any significant abnormalities. Chemistries do not show any significant abnormalities either other than an elevated BUN to creatinine ratio. The symptoms been present for over 2 days. No evidence of acute coronary syndrome causing his symptoms today. Ambulating without difficulty. No change with exertion. Patient counseled regarding signs and symptoms for which I believe and urgent re-evaluation would be necessary. Patient with good understanding of and agreement to plan and is c omfortable going home at this time This document was made in part using voice recognition software. While efforts are made to proofread this document, sound alike and grammatical errors may occur. Departure - Departure Disposition: 01 Home, Self Care Clinical Impression: Atypical chest pain Condition: Good Instructions: ED Chest Pain Atypical Unkn Cause Follow-Up: KERON LEBLANC DO [Primary Care Provider] - Within 1 week Comments: The cause of your symptoms is unclear today. Your heart test did not show any evidence of a heart attack. Please follow-up with your doctor for further care. Please return if you worsen. Discharge Date/Time: 07/25/22 18:20
[2022-07-25 17:40] LABS: BASOPHILS # (AUTO) 0.1 10^3/uL (0.0-0.1); BASOPHILS % (AUTO) 1.3 %; EOSINOPHILS # (AUTO) 0.3 10^3/uL (0.0-0.7); EOSINOPHILS % (AUTO) 5.6 %; HGB - HEMOGLOBIN 13.4 g/dL (14.0-18.0); LYMPHOCYTES # (AUTO) 1.2 10^3/uL (1.5-3.5); LYMPHOCYTES % (AUTO) 21.8 %; MEAN CORPUSCULAR HGB CONC 31.9 g/dL (32.0-36.0); MEAN CORPUSCULAR VOLUME 87.7 fL (80.0-94.0); MEAN PLATELET VOLUME 11.1 fL (7.4-11.4); MONOCYTES # (AUTO) 0.5 10^3/uL (0.0-1.0); NEUTROPHILS # (AUTO) 3.5 10^3/uL (1.5-6.6); NEUTROPHILS % (AUTO) 62.1 %; PLT - PLATELET COUNT 208 10^3/uL (130-450); RED BLOOD COUNT 4.79 10^6/uL (4.70-6.10); RED CELL DISTRIBUTION WIDTH 15.7 % (12.0-15.0); WHITE BLOOD COUNT 5.6 x10^3/uL (4.8-10.8)
[2022-07-25 17:57] LABS: ALBUMIN 3.6 g/dL (3.2-5.5); BILIRUBIN,TOTAL 0.6 mg/dL (0.2-1.0); CALCIUM 8.9 mg/dL (8.5-10.3); CREATININE 0.9 mg/dL (0.6-1.2); POTASSIUM 3.7 mmol/L (3.5-5.0); TOTAL PROTEIN 7.2 g/dL (6.7-8.2)
--- NOTE | 2022-07-25 18:22 | XRAY Report ---
PROCEDURE: Chest 1 View X-Ray INDICATIONS: Chest Pain TECHNIQUE: One view of the chest was acquired. COMPARISON: 04/08/2022 FINDINGS: Surgical changes and devices: None. Lungs and pleura: No pleural effusions or pneumothorax. Lungs are clear. Mediastinum: Mediastinal contours appear normal. Heart size is normal. Bones and chest wall: No suspicious bony lesions. Overlying soft tissues appear unremarkable. IMPRESSION: No acute cardiopulmonary disease. Reviewed by: Divya Alas MD on 07/25/2022 6:20 PM [facility] Approved by: Divya Alas MD on 07/25/2022 6:20 PM [facility] Station ID: [id number]
== END 2022-07-25 18:20 | disposition home or self-care (01) ==
LOC: EDUNIT# → ED 16:51
DX: R07.89 Other chest pain (principal)
CPT/HCPCS: 36415; 80053; 83690; 84484; 85025; 93005; 99283